=== PATIENT | female | born 1965 | race Caucasian/White ===

== ENCOUNTER 2021-10-06 20:56 | Emergency (ER) | payer BC, SELFPAY ==
[2021-10-06 20:58] VITALS: BP 177/91; PULSE 79; RESP 24; TEMP 36.7; O2SAT 100; BMI 36.2
[2021-10-06 21:15] LABS: Add Manual Diff / Slide Review NO; Basophils Absolute Auto 100 /uL (0-100); Basophils Percent Auto 0.6 % (0-2); Eosinophils Absolute Auto 200 /uL (0-450); Eosinophils Percent Auto 2.7 % (2-4); Hematocrit 35.9 % (36-46); Hemoglobin 12.1 g/dL (12.0-16.0); Lymphocytes Absolute Auto 3900 /uL (1100-4500); Lymphocytes Percent Auto 44.6 % (25-40); Mean Corpuscular HGB Conc 33.7 % (30-36); Mean Corpuscular Hemoglobin 28.9 PG (26-34); Mean Corpuscular Volume 85.8 fL (80-100); Monocytes Absolute Auto 500 /uL (0-900); Monocytes Percent Auto 6.3 % (3-14); Neutrophils Absolute Auto 4000 /uL (1500-7000); Neutrophils Percent Auto 45.8 % (50-75); Platelet Count 310 X10^3/uL (150-400); Red Blood Cell Count 4.18 X10^6/uL (4.0-5.2); Red Cell Distribution Width 14.3 % (11.6-14.8); White Blood Cell Count 8.7 X10^3/uL (4.5-11.0)
--- NOTE | 2021-10-06 21:15 | ED.GENADULT ---
HPI - General Adult General Chief complaint: Urogenital-Female Stated complaint: passing kidney stone Time Seen by Provider: 10/06/21 21:04 Source: patient Mode of arrival: Ambulatory History of Present Illness HPI narrative: Patient is a 56-year-old female who has had multiple kidney stones in the past was here for evaluation of approximately 12 hours of left-sided flank discomfort that she states is consistent with her prior episodes of kidney stones. She has passed stones in the past but has also needed lithotripsy in the past. She does have a urologist that she sees. She is from [place] and is visiting the area. She denies any fevers. Denies any change in bowel habits. Contacted her urologist who did call in a prescription for Flomax and tramadol. She did take a dose of these prior to arrival. Related Data Allergies Allergy/AdvReac Type Severity Reaction Status Date / Time Penicillins Allergy Verified 10/06/21 21:00 tetracycline Allergy Verified 10/06/21 21:00 Review of Systems Constitutional Constitutional: Denies fever(s) Gastrointestinal Gastrointestinal: Reports system reviewed and no additional complaints, except as documented Genitourinary Genitourinary: Reports system reviewed and no additional complaints, except as documented Integumentary/Breasts Skin/Breast: Reports system reviewed and no additional complaints, except as documented Hematologic/Lymphatic On Anticoagulants: No Patient History Medical History Kidney stones Social History Smoking Status: Unknown if ever smoked Smoking Status: Unknown if ever smoked alcohol intake frequency: holidays/special occasions only Substance Use Type: does not use Exam Initial Vital Signs Initial Vital Signs: Vital Signs Temperature 98.0 F 10/06/21 20:58 Pulse Rate 79 10/06/21 20:58 Respiratory Rate 24 10/06/21 20:58 Blood Pressure 177/91 H 10/06/21 20:58 Pulse Oximetry 100 10/06/21 20:58 Const General: cooperative Limitations: mental status not altered Resp Effort & Inspection: normal respiratory effort Cardio Rate: regular rate GI Inspection: non-distended Skin General: no rashes or lesions noted Neuro General: patient alert, patient awake and moves all extremities Extrem General: normal to inspection Psych Appearance: grossly normal Course Orders Ordered: ED Orders 12/10/21 21:08 Basic Metabolic Panel Stat Complete Blood Count AUTO DIFF Stat 10/06/21 22:20 Urine Microscopic Stat Discontinued Medications Hydromorphone HCl (Hydromorphone 1 Mg Inj) 1 mg IV NOW ONE Stop: 10/06/21 21:17 Last Admin: 10/06/21 21:22 Dose: 1 mg Documented by: ERIC Ketorolac Tromethamine (Ketorolac 30 Mg/Ml Vial) 30 mg IV NOW ONE Stop: 10/06/21 21:17 Last Admin: 10/06/21 21:22 Dose: 30 mg Documented by: ATAYLOR Ondansetron HCl (Ondansetron 4 Mg/2 Ml Inj) 4 mg IV NOW ONE Stop: 10/06/21 21:17 Last Admin: 10/06/21 21:22 Dose: 4 mg Documented by: ATAYLOR Ondansetron HCl (Ondansetron 4 Mg Odt Prepack) 1 bottle MISC SEEINSTR ONE Stop: 10/06/21 23:10 Last Admin: 10/06/21 23:17 Dose: 1 bottle Documented by: LANDEN Vital Signs Vital signs: Vital Signs - 8 hr 10/06/21 20:58 10/06/21 23:24 Temperature 98.0 F Pulse Rate 79 60 Respiratory Rate 24 16 Blood Pressure 177/91 H 134/77 Pulse Oximetry 100 98 Medical Decision Making Lab Data Lab results reviewed: Yes I reviewed the patient's lab results. Result diagrams: 10/06/21 21:08 10/06/21 21:08 Labs: Lab Results 10/06/21 10/06/21 10/06/21 Range/Units 21:08 21:08 22:20 WBC 8.7 (4.5-11.0) X10^3/uL RBC 4.18 (4.0-5.2) X10^6/uL Hgb 12.1 (12.0-16.0) g/dL Hct 35.9 L (36-46) % MCV 85.8 (80-100) fL MCH 28.9 (26-34) PG MCHC 33.7 (30-36) % RDW 14.3 (11.6-14.8) % Plt Count 310 (150-400) X10^3/uL Neut % (Auto) 45.8 L (50-75) % Lymph % (Auto) 44.6 H (25-40) % Stone % (Auto) 6.3 (3-14) % Eos % (Auto) 2.7 (2-4) % Baso % (Auto) 0.6 (0-2) % Neut # (Auto) 4000 (9845-6808) /uL Lymph # (Auto) 3900 (2153-2823) /uL Stone # (Auto) 500 (0-900) /uL Eos # (Auto) 200 (0-450) /uL Baso # (Auto) 100 (0-100) /uL Sodium 142 (137-145) mmol/L Potassium 4.0 (3.4-5.1) mmol/L Chloride 110 H (98-107) mmol/L Carbon Dioxide 25 (22-32) mmol/L BUN 30 H (7-17) mg/dL Creatinine 1.76 H (0.52-1.04) mg/dL Estimated GFR 30.1 L (>60) mL/min BUN/Creatinine Ratio 17.0 (6-22) Glucose 124 H (70-100) mg/dL Calcium 9.0 (8.4-10.2) mg/dL Urine RBC 10-30/hpf H (0-5/HPF) Urine WBC None seen (0-5/HPF) Ur Squamous Epith Cells 0-1 /hpf (0-5/HPF) Urine Bacteria Few (2-10) H (None) Ur Culture Indicated? Cult not indicated Urine Dip Bedside Urine Glucose Negative Bedside Urine Bilirubin - Negative Bedside Urine Ketone - Negative Urine Specific Goodwell 1.02 Bedside Urine Occult Blood +++ Bedside Urine pH 6.0 Bedside Urine Protein - Negative Bedside Urine Urobilinogen - Negative Bedside Urine Nitrite - Negative Bedside Urine Leukocytes - Negative Esterase Point of care testing: Urine Dip Bedside Urine Glucose Negative Bedside Urine Bilirubin - Negative Bedside Urine Ketone - Negative Urine Specific Goodwell 1.02 Bedside Urine Occult Blood +++ Bedside Urine pH 6.0 Bedside Urine Protein - Negative Bedside Urine Urobilinogen - Negative Bedside Urine Nitrite - Negative Bedside Urine Leukocytes - Negative Esterase MDM Narrative Medical decision making narrative: Urinalysis is less concerning for an infection. She does have a elevation in her creatinine decrease in her GFR. States that she has had this in the past. She states that normally her creatinine is in the 1.2-1.4 range. We have no priors to compare this to. She has needed lithotripsy in the past. Had a discussion with her regarding her symptoms. We discussed obtaining a CT scan to find size and location of the stone versus waiting to see if she passes the stone on her own. She is convinced that the symptoms she is having today are consistent with her prior diagnosis of kidney stones. After this discussion we opted to hold on any CT scans for now. She already has pain medication and Flomax. Will give a prescription for nausea medication. She was given strict return precautions and follow-up instructions. She expressed understanding and agreement. Discharge Plan Departure Patient Disposition: Home Clinical Impression: Renal colic on left side Instructions: Kidney Stones -- Adult Activity Restrictions/Additional Instructions: Take the pain medication the rest her medications at home as directed. 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 Return to the emergency department for any new or worsening symptoms.
[2021-10-06] MEDS: HYDROMORPHONE 1 MG INJ IV (21:22)
[2021-10-06] MEDS: KETOROLAC 30 MG/ML VIAL IV (21:22)
[2021-10-06] MEDS: ONDANSETRON 4 MG/2 ML INJ IV (21:22)
--- NOTE | 2021-10-06 21:22 | PC.NURSE ---
Patient with known hx of kidney stones, followed by urologist in [place], has been unable to keep home meds down.
[2021-10-06 21:30] LABS: Blood Urea Nitrogen 30 mg/dL (7-17); Carbon Dioxide 25 mmol/L (22-32); Chloride 110 mmol/L (98-107); Estimated Glomerular Filt Rate 30.1 mL/min (>60); Glucose 124 mg/dL (70-100); HEMOLYSIS 19 (0-50); Sodium 142 mmol/L (137-145)
[2021-10-06 22:51] LABS: RBC Urine 10-30/HPF (0-5/HPF); Squamous Epithelial Cell Urine 0-1 /HPF (0-5/HPF); WBC Urine None Seen (0-5/HPF)
[2021-10-06 22:52] LABS: Bacteria Urine Few (2-10)
[2021-10-06 22:53] LABS: Culture Indicated Urine Cult Not Indicated
[2021-10-06] MEDS: ONDANSETRON 4 MG ODT PREPACK 1 BOTTLE MISC (23:17)
[2021-10-06 23:24] VITALS: BP 134/77; PULSE 60; RESP 16; O2SAT 98
== END 2021-10-06 23:24 | disposition home or self-care (01) ==
PROVIDERS: Emergency Provider Emergency Medicine
DX: N23 Unspecified renal colic (principal)
CPT/HCPCS: 36415; 80048; 81003; 81015; 85025; 96374; 96375; 99284; J1170; J1885; J2405